=== PATIENT | female | born 1960 | race Caucasian/White ===

== ENCOUNTER 2022-04-28 09:38 | Day surgery (SDC) | payer BC, OTHER ==
[2022-04-18 16:54] LABS: BASOPHILS # (AUTO) 0.1 X10'3 (0-0.2); EOSINOPHILS # (AUTO) 0.1 X10'3 (0-0.9); EOSINOPHILS % (AUTO) 1.4 % (0-6); LYMPHOCYTES % (AUTO) 31.2 % (21-51); MEAN CORPUSCULAR HEMOGLOBIN 32.4 PG (27.0-31.0); MEAN CORPUSCULAR VOLUME 92.7 FL (78-98); MEAN PLATELET VOLUME 8.8 FL (7.4-10.4); MONOCYTES # (AUTO) 0.5 X10'3 (0-0.9); MONOCYTES % (AUTO) 7.4 % (2-12); NEUTROPHILS # (AUTO) 3.7 X10'3 (1.8-7.7); PRE OP HEMATOCRIT 42.7 % (35.0-45.0); PRE OP HEMOGLOBIN 14.9 g/dL (12.0-16.0); PRE OP PLATELET COUNT 279 X10'3 (140-440); RED CELL DISTRIBUTION WIDTH 12.4 % (11.5-14.5)
[2022-04-18 17:03] LABS: ALBUMIN 4.2 G/DL (3.4-5.0); ALKALINE PHOSPHATASE 96 IU/L (46-116); BLOOD UREA NITROGEN 20 MG/DL (7-18); CALCIUM 9.9 MG/DL (8.5-10.1); CHLORIDE 105 MMOL/L (99-107); PRE OP ALT 22 U/L (30-65); PRE OP ANION GAP 7 (8-16); PRE OP AST 21 U/L (10-37); PRE OP BILIRUB, TOTAL 0.4 MG/DL (0.0-1.0); PRE OP GLUCOSE 97 MG/DL (70-104); PRE OP POTASSIUM 3.6 MMOL/L (3.4-5.1); PRE OP SODIUM 142 MMOL/L (135-145); TOTAL CARBON DIOXIDE 30.5 MMOL/L (24-32); TOTAL PROTEIN 8.4 G/DL (6.4-8.2); eGFR 56 ML/MIN
[~2022-04-28] VITALS: Ht 177.8 cm; Wt 94.8 kg
[2022-04-28] VITALS (29 sets, daily range): BP systolic 101–138; BP diastolic 59–84
[~2022-04-28 09:38] MED LIST: NO HOME MEDS; ceFAZolin inj. 2,000 MG in dextrose 5%-water 100 ML IV ONE; famotidine 20mg tablet PO ONE; tranexamic acid 650mg tablet PO ONE; vancomycin/NS 1 GM in NS 250 ML IV ONE
--- NOTE | 2022-04-28 11:00 | NUR ---
PT ABLE TO COMPLETE ALL SHOWERS AND OINTMENT INSTRUCTED, DID NOT VIEW ONLINE JOINT INFORMATION, CSM INTACT TO BUE
[2022-04-28] MEDS: ringers solution, lacted 1,000 ML IV SCH ×2 (11:27→15:47)
[2022-04-28] MEDS ORDERED: ROPIVAcaine 0.5% (5mg/ml) 30ml vial ONE ×2 (12:32→14:01)
[2022-04-28] MEDS ORDERED: ringers solution, lacted 1,000 ML IV SCH (12:45)
[2022-04-28] MEDS ORDERED: ondansetron/PF 4mg/2ml inj IV PRN ×2 (12:45→15:25)
[2022-04-28] MEDS ORDERED: morphine 4 MG/ML inj SYRINge IV PRN (12:45)
[2022-04-28] MEDS ORDERED: proCHLORperazine 10 MG/2 ml inj IV PRN (12:45)
[2022-04-28] MEDS ORDERED: morphine 2 MG/ML inj. syringe IV PRN (12:45)
[2022-04-28] MEDS ORDERED: meperidine/PF 25mg/ml syringe IV PRN ×3 (12:45)
[2022-04-28] MEDS ORDERED: ROPIVAcaine 0.2%/PF PUMP/bolus 545 ML INTERSCALE SCH (12:45)
[2022-04-28] MEDS ORDERED: ROPIVAcaine 0.2% (10 MG/5 ML) BOLUS INJECTION INTERSCALE PRN (12:45)
[2022-04-28] MEDS ORDERED: midazolam 1 mg/ML 2ml injection ONE ×2 (13:21→13:45)
[2022-04-28] MEDS ORDERED: fentaNYL/PF 50MCG/1 ML 2ML syringe ONE ×2 (13:21→13:56)
[2022-04-28] MEDS ORDERED: ondansetron/PF 4mg/2ml inj ONE (14:01)
[2022-04-28] MEDS ORDERED: LIDOcaine 1%/PF 5ML 10 MG/ML VIAL ONE (14:01)
[2022-04-28] MEDS ORDERED: dexamethasone sod phosphate 4mg/ml inj. ONE (14:01)
[2022-04-28] MEDS ORDERED: propofol inj 20 ML IV ONE (14:01)
[2022-04-28] MEDS ORDERED: acetaminophen 1,000mg/100ml IV 100 ML IV ONE (14:01)
[2022-04-28] MEDS ORDERED: ePHEDrine 50MG/ML INJ. ONE (14:01)
[2022-04-28] MEDS ORDERED: HYDROmorphone inj. 0.5 MG/0.5 ML DISP.SYRIN IV PRN (15:25)
[2022-04-28] MEDS ORDERED: acetaminophen 325mg tablet PO PRN (15:25)
[2022-04-28] MEDS ORDERED: diphenhydrAMINE 25mg capsule PO PRN ×2 (15:25)
[2022-04-28] MEDS ORDERED: magnesium hydroxide 30ml (MOM) UD suspension PO PRN (15:25)
[2022-04-28] MEDS ORDERED: oxyCODONE IR 5mg (immed. release) tablet PO PRN ×2 (15:25)
[2022-04-28] MEDS ORDERED: naloxone 0.4 mg/ml inj IV PRN (15:25)
[2022-04-28] MEDS ORDERED: bisacodyl 10mg suppository rectal RC PRN (15:25)
[2022-04-28] MEDS ORDERED: HYDROcodone/acetaminophen 10/325mg tab PO PRN ×2 (15:25)
[2022-04-28] MEDS ORDERED: HYDROmorphone 1 mg/ml syringe IV PRN (15:25)
--- NOTE | 2022-04-28 15:40 | NUR ---
Received from OR via HOSPITAL BED, accompanied by Anesthesiologist DR ABBOTT and report given by Anesthesiolgist. PT PLACED ON BEDSIDE MONITOR, VSS. PT IS ST WITH RATE IN THE LOW 110'S. PT RECEIVING 8L O2 TO MASK AND TOLERATING WELL WITH O2 SAT >97%. PT IS GROGGY BUT WAKES EASILY TO VERBAL STIMULI, ANSWERS QUESTIONS APPROPRIATELY AND IS ABLE TO DEVINE. PT HAS 20G PIV TO LEFT FA WITH LR INFUSING ORDERED. PT HAS DRSG TO RT SHOULDER THAT IS CDI, SHOULDER WRAP IN PLACE WITH POWDER ICEPACK AND SLING IN PLACE. PT IS ABLE TO WIGGLE FINGERS, STATES NUMBNESS. PT DENIES PAIN AT THIS TIME. WILL CONTINUE TO ASSESS
[2022-04-28] MEDS ORDERED: ceFAZolin/D5W- 1GM premix 50 ML IV SCH (16:00)
[2022-04-28] MEDS ORDERED: LORazepam 2 mg/ml vial IV ONE (17:35)
[2022-04-28] MEDS ORDERED: vancomycin/NS 1 GM ADD-VANTAGE 250 ML IV SCH (20:00)
--- NOTE | 2022-04-28 20:05 | NUR ---
PATIENT HAS MET ALL CRITERIA FOR TRANSFER TO THE SURGICAL FLOOR. VSS. DRESSINGS INTACT. BED LOW, CALL LIGHT PRESENT AND 2 RAILS UP. RN PRESENT TO ACCEPT CARE OF PATIENT AND REPORT HAS BEEN CALLED JEIMY BARRY. ALL QUESTIONS ANSWERED TO ACCEPTING RN.
--- NOTE | 2022-04-28 20:18 | NUR ---
PT ARRIVED FROM OR. I WAS TOLD THAT POST OP VITALS ARE ALL DONE IN RECOVERY ROOM SINCE PT WAS THERE FOR 6 HOURS. PT HAS BEEN ORIENTED TO THE ROOM. VSS
[2022-04-28] MEDS: acetaminophen 325mg tablet PO SCH (20:45)
[2022-04-28] MEDS: ceFAZolin/D5W- 1GM premix 50 ML IV SCH (20:47)
[2022-04-28] MEDS ORDERED: sennosides 8.6mg tablet PO SCH (21:00)
[2022-04-29] MEDS: potassium cl 20mEq in 1/2 NS 1,000 ML IV SCH ×3 (01:06→15:25)
[2022-04-29 02:00] VITALS: BP 107/57
[2022-04-29] MEDS: acetaminophen 325mg tablet PO SCH ×3 (02:25→14:33)
[2022-04-29] MEDS: ceFAZolin/D5W- 1GM premix 50 ML IV SCH (04:43)
[2022-04-29 06:00] VITALS: BP 126/63
[2022-04-29 06:11] LABS: BASOPHILS % (AUTO) 0.2 % (0-1); EOSINOPHILS % (AUTO) 0 % (0-6); HEMATOCRIT 37.9 % (35.0-45.0); HEMOGLOBIN 12.2 g/dl (12.0-16.0); LYMPHOCYTES # (AUTO) 1.3 X10'3 (1.1-4.8); LYMPHOCYTES % (AUTO) 15.6 % (21-51); MEAN CORPUSCULAR HEMOGLOBIN 31.9 PG (27.0-31.0); MEAN CORPUSCULAR HGB CONC 32.2 g/dL (33.0-36.5); MEAN CORPUSCULAR VOLUME 99.2 FL (78-98); MEAN PLATELET VOLUME 8.4 FL (7.4-10.4); MONOCYTES # (AUTO) 0.7 X10'3 (0-0.9); MONOCYTES % (AUTO) 8.2 % (2-12); NEUTROPHILS # (AUTO) 6.3 X10'3 (1.8-7.7); PLATELET COUNT 184 X10'3 (140-440); RED BLOOD COUNT 3.83 X10'6 (4.20-5.60); RED CELL DISTRIBUTION WIDTH 12.6 % (11.5-14.5); WHITE BLOOD COUNT 8.3 X10'3 (4.5-11.0)
--- NOTE | 2022-04-29 06:30 | NUR ---
Patient in room [facility]. I have received report from Cecilio BARRY and had the opportunity to ask questions and assume patient care.
--- NOTE | 2022-04-29 06:33 | NUR ---
Problems reprioritized. Patient report given, questions answered & plan of care reviewed with JHONNY MARIE.
--- NOTE | 2022-04-29 06:51 | NUR ---
Patient in room [facility]. I have received report from Cecilio BARRY and had the opportunity to ask questions and assume patient care.
[2022-04-29 07:38] VITALS: BP 117/63
[2022-04-29] MEDS ORDERED: aspirin 325mg tablet PO SCH (08:30)
--- NOTE | 2022-04-29 10:35 | NUR ---
Joint surgery consult: Pt s/p R shoulder surgery this admit per EMR. Pt/SO seen by MARGARITO for written/verbal high protein diet ed w/ RD contact information provided. MARGARITO encouraged pt/SO to contact dietitian's office if further questions/concerns. Addendum: 04/29/22 at [address] Amended: Links added.
[2022-04-29 11:00] VITALS: BP 121/66
--- NOTE | 2022-04-29 14:31 | NUR ---
Student documentation: I have reviewed and agree with all interventions, assessments performed and documented by Farnaz GALICIA Student.
[2022-04-29] MEDS ORDERED: oxyCODONE IR 5mg (immed. release) tablet PO ONE (14:55)
[2022-04-30] MEDS ORDERED: acetaminophen 325mg tablet PO PRN (15:25)
== END 2022-04-29 16:29 | disposition home or self-care (01) ==
LOC: PAS 09:38 → SUR 3N 20:20 → PAS 04-29 16:29
PROVIDERS: ATTEND Orthopaedic Surgery
DX: M19.011 Primary osteoarthritis, right shoulder (principal); M75.21 Bicipital tendinitis, right shoulder; Z79.899 Other long term (current) drug therapy; Z98.890 Other specified postprocedural states; Z90.710 Acquired absence of both cervix and uterus; G89.18 Other acute postprocedural pain
CPT/HCPCS: 23430; 23472; 36415; 64415; 73020; 76942; 80053; 82948; 84132; 85025; 87081; 97161; 97530; C1713; C1776; J0131; J0690; J0780; J1100; J2060; J2250; J2405; J2704; J2795; J3010; J3370; J3480; J3490; J7030; J7060; J7120; Z7506; Z7508; Z7512; A4565; A4615; A4618; A7000; G0378